=== PATIENT | female | born 1955 | race American Indian/Alaskan Native ===

== ENCOUNTER 2018-07-06 05:57 | Inpatient (IN) | payer BC ==
--- NOTE | 2018-07-06 06:52 | CP.PCM.HP ---
History of Present Illness - History of Present Illness History of Present Illness: PMD: Zoe Odom Orhtopedist: Fr Reina Chief Complaint: Right hip pain The patient was seen and examined in the [facility] HPI; the hx is obtained from the patient and after review of the medical records. This is a 62 years old female with hx of Breast Ca dx 2018 and HTN. She has been suffering with progressively worsening painful Osteoarthritis of the right hip for years. This is not responding to conservative management of exercise and analgesics.At present she has to use a Cane to ambulate and has difficulty to climb stairs because ot the right hip pain. She has decided to have surgical management to the right hip. She complains of mild pain to the right breast and upper right arm s/p right breast lumpectomy and right axillae lymph node resection in 2018. PMH: Right breast Ca 2018; HTN; Right hip arthritis PSH: Right breast lumpectomy 2018; Tubal ligation 30 years ago SH: Never smoked; Alcohol socially; No illegal drug use; Retired FH: State: No known family hx Allergies: NKDA Latex Medication: Reviewed Present on Admission - Present on Admission Any Indicators Present on Admission: No History of DVT/PE: No History of Uncontrolled Diabetes: No Urinary Catheter: No Decubitus Ulcer Present: No Review of Systems - Constitutional Constitutional: absent: Anorexia, Chills, Fatigue, Fever, Headache - EENT Eyes: absent: Blurred Vision, Change in Vision, Diplopia, Requires Corrective Lenses Ears: absent: Decreased Hearing, Ear Discharge, Tinnitus Nose/Mouth/Throat: absent: Epistaxis, Nasal Congestion, Nasal Discharge, Sinus Pain, Sinus Pressure - Cardiovascular Cardiovascular: absent: Chest Pain, Dyspnea, Edema - Respiratory Respiratory: absent: Cough, Dyspnea, Wheezing, Stridor - Gastrointestinal Gastrointestinal: absent: Abdominal Pain, Constipation, Diarrhea, Nausea, Vomiting - Genitourinary Genitourinary: absent: Dysuria, Flank Pain, Hematuria, Urinary Frequency - Musculoskeletal Musculoskeletal: Arthralgias - Integumentary Integumentary: absent: Skin Ulcer, Sores, Striae, Swelling - Neurological Neurological: absent: Confusion, Dizziness, Focal Weakness - Psychiatric Psychiatric: absent: Anxiety, Depression, Panic Attacks - Endocrine Endocrine: absent: Palpitations, Polydipsia, Polyphagia, Polyuria - Hematologic/Lymphatic Hematologic: absent: Easy Bleeding, Easy Bruising Past Patient History - Past Medical History & Family History Past Medical History?: Yes - Past Social History Smoking Status: Former Smoker Chewing Tobacco Use: No Cigar Use: No Alcohol: Social - CARDIAC Hx Cardiac Disorders: Yes Hx Hypertension: Yes - PULMONARY Hx Respiratory Disorders: No - NEUROLOGICAL Hx Neurological Disorder: No - HEENT Hx HEENT Problems: No - RENAL Hx Chronic Kidney Disease: No - ENDOCRINE/METABOLIC Hx Endocrine Disorders: No - HEMATOLOGICAL/ONCOLOGICAL Hx Blood Disorders: Yes Hx Anemia: No Hx Blood Transfusions: No Hx Cancer: Yes (RIGHT BREAST CA-RADIATION X3 WEEKS-2018) - INTEGUMENTARY Hx Dermatological Problems: No - MUSCULOSKELETAL/RHEUMATOLOGICAL Hx Musculoskeletal Disorders: Yes Hx Arthritis: Yes (HIP) Hx Falls: No - GASTROINTESTINAL Hx Gastrointestinal Disorders: No - GENITOURINARY/GYNECOLOGICAL Hx Genitourinary Disorders: No - PSYCHIATRIC Hx Emotional Abuse: No Hx Physical Abuse: No - SURGICAL HISTORY Hx Surgeries: Yes Other/Comment: RIGHT BREAST LUMPECTOMY-2018;COLONOSCOPY;ENDOSCOPY;D&C;TUBALIGATION-30 YEARS AGO - ANESTHESIA Hx Anesthesia: Yes Hx Anesthesia Reactions: No Hx Malignant Hyperthermia: No Has any member of the family had a problem w/ anesthesia?: No Meds Allergies/Adverse Reactions: Allergies Allergy/AdvReac Type Severity Reaction Status Date / Time latex Allergy SWELLING Verified 07/06/18 06:30 Physical Exam - Head Exam Head Exam: ATRAUMATIC, NORMAL INSPECTION, NORMOCEPHALIC - Eye Exam Eye Exam: EOMI, Normal appearance Pupil Exam: NORMAL ACCOMODATION, PERRL - ENT Exam ENT Exam: Mucous Membranes Moist, Normal Exam, Normal External Ear Exam - Neck Exam Neck exam: Positive for: Full Rom, Normal Inspection. Negative for: Lymphadenopathy, Tenderness - Respiratory Exam Respiratory Exam: Clear to Auscultation Bilateral. absent: Rales, Rhonchi, Wheezes, Stridor - Cardiovascular Exam Cardiovascular Exam: REGULAR RHYTHM, RRR, +S1, +S2. absent: Gallop, JVD - GI/Abdominal Exam GI & Abdominal Exam: Normal Bowel Sounds, Soft. absent: Organomegaly, Tenderness - Rectal Exam Rectal Exam: Deferred - Extremities Exam Extremities exam: Positive for: normal inspection. Negative for: pedal edema Additional comments: Pain to the right hip on ambulation - Back Exam Back exam: NORMAL INSPECTION. absent: CVA tenderness (L), CVA tenderness (R) - Neurological Exam Neurological exam: Alert, CN II-XII Intact, Oriented x3, Reflexes Normal - Psychiatric Exam Psychiatric exam: Normal Affect, Normal Mood - Skin Skin Exam: Dry, Intact, Normal Color, Warm Assessment & Plan - Assessment and Plan (Free Text) Plan: 62 years old female with hx of Breast Ca dx 2018 and HTN. She has been suffering with progressively worsening painful Osteoarthritis of the right hip for years. She has failed conservative management and has decided to have surgical management to the right hip. #. Osteoarthritis of the right hip - Consult Orthopedic, Dr Reina - Orthopedic management - Pain management - OT/PT #. HTN - Norvasc 10mg daily #. Hx of Breast Ca - Followed by OP Oncology #. DVT Prophylaxis with SCD Anticoagulant on Post OP day #1 #. Code Status: Full This patient was cleared for surgery by Dr Hardik Gonzalez. After review of the laboratory, radiological and medical records, this patient has mild to moderate cardiac risk for Surgery. I agreee with the clearance of this patient for surgery under general anaesthesia. Obinna Spain MD - Date & Time Date: 07/06/18 Time: 06:51
--- NOTE | 2018-07-06 07:22 | CP.PCM.CON ---
History of Present Illness - History of Present Illness History of Present Illness: Orthopedic consult: Dr. Reina Patient is a 62 y/o female who presents for elective R NELLY. The patient has had chronic hip pain for many years that has progressively worsened over the past few months. The pain has hindered her usual activities such as walking and stair-climbing. She currently walks with a cane and climbs 5 steps to get into her home where shelives alone. She has tried and failed conservative means with oral medications and PT. She denies any radiation of pain/numbness/tingling to RLE. She denies any CP/SOB/N/V/D/fever/dysuria/melena. She denies any cardiac/thromboembolic events in the past. PMH: HTN PSH: tubal ligation, R breast lumpectomy meds: as per med rec allergy: latex SH: former smoker (quit 2005), drinks wine occasionally, denies drug use Review of Systems - Review of Systems All systems: reviewed and no additional remarkable complaints except Review of Systems: as per HPI Past Patient History - Past Medical History & Family History Past Medical History?: Yes Past Family History: Reviewed and not pertinent - Past Social History Smoking Status: Former Smoker - CARDIAC Hx Cardiac Disorders: Yes Hx Hypertension: Yes - PULMONARY Hx Respiratory Disorders: No - NEUROLOGICAL Hx Neurological Disorder: No - HEENT Hx HEENT Problems: No - RENAL Hx Chronic Kidney Disease: No - ENDOCRINE/METABOLIC Hx Endocrine Disorders: No - HEMATOLOGICAL/ONCOLOGICAL Hx Blood Disorders: Yes Hx Anemia: No Hx Blood Transfusions: No Hx Cancer: Yes (RIGHT BREAST CA-RADIATION X3 WEEKS-2018) - INTEGUMENTARY Hx Dermatological Problems: No - MUSCULOSKELETAL/RHEUMATOLOGICAL Hx Musculoskeletal Disorders: Yes Hx Arthritis: Yes (HIP) Hx Falls: No - GASTROINTESTINAL Hx Gastrointestinal Disorders: No - GENITOURINARY/GYNECOLOGICAL Hx Genitourinary Disorders: No - PSYCHIATRIC Hx Emotional Abuse: No Hx Physical Abuse: No - SURGICAL HISTORY Hx Surgeries: Yes Other/Comment: RIGHT BREAST LUMPECTOMY-2018;COLONOSCOPY;ENDOSCOPY;D&C;TUBALIGATION-30 YEARS AGO - ANESTHESIA Hx Anesthesia: Yes Hx Anesthesia Reactions: No Hx Malignant Hyperthermia: No Has any member of the family had a problem w/ anesthesia?: No Meds Allergies/Adverse Reactions: Allergies Allergy/AdvReac Type Severity Reaction Status Date / Time latex Allergy SWELLING Verified 03/11/19 06:30 Physical Exam - Constitutional Appears: Well, No Acute Distress - Head Exam Head Exam: ATRAUMATIC, NORMOCEPHALIC - Eye Exam Eye Exam: EOMI, Normal appearance - ENT Exam ENT Exam: Mucous Membranes Moist - Respiratory Exam Respiratory Exam: NORMAL BREATHING PATTERN - Extremities Exam Additional comments: RLE: lateral hip and groin tenderness no lesions/masses/erythema sensation intact SP/DP/TN motor intact EHL/FHL/TA/G pedal pulses intact calves soft NT b/l - Neurological Exam Neurological exam: Alert, Oriented x3 - Psychiatric Exam Psychiatric exam: Normal Affect, Normal Mood - Skin Skin Exam: Normal Color, Warm Results - Vital Signs Recent Vital Signs: Last Vital Signs Temp 97.7 F 07/06/18 06:55 Pulse 83 07/06/18 06:55 Resp 20 07/06/18 06:55 BP 133/80 07/06/18 06:55 Pulse Ox 94 L 07/06/18 06:55 - Impressions Impression: R hip xrays from outside facility show R hip osteoarthritis Assessment & Plan (1) Osteoarthritis of right hip Assessment and Plan: -OR today for R hip NELLY -Risks/benefits/alternatives d/w patient who expresses understanding and agrees to proceed with above procedure -NPO -Medical clearance in chart -above d/w Dr. Reina in agreement Status: Acute - Date & Time Date: 07/06/18 Time: 07:15
[2018-07-06] MEDS ORDERED: Tranexamic Acid 1,000 MG in Sodium Chloride 0.9% 100 ML IVPB SCH (07:24)
[2018-07-06] MEDS ORDERED: EPINEPHrine 1 mg/ml (1:1000) Inj ONE (07:42)
[2018-07-06] MEDS ORDERED: Absorbable Gelatin Sponge Size 12-7 ONE (07:42)
[2018-07-06] MEDS ORDERED: Thrombin Topical 5,000 Int Units Spray Kit ONE (07:43)
[2018-07-06] MEDS ORDERED: Bacitracin Ointment 30 GM TUBE ONE (07:43)
[2018-07-06] MEDS ORDERED: Lactated Ringer's 1,000 ML IV ONE ×3 (07:45→12:28)
[2018-07-06 07:49] LABS: SQUAMOUS EPITHIAL 1 /hpf (0-5); URINE BILIRUBIN NEGATIVE (NEGATIVE); URINE BLOOD NEGATIVE (NEGATIVE); URINE CALCIUM OXALATE CRYSTALS MOD /hpf (<OCC); URINE CLARITY CLOUDY (Clear); URINE COLOR YELLOW (YELLOW); URINE GLUCOSE (UA) NEG (NEGATIVE); URINE LEUKOCYTE ESTERASE NEG Leu/uL (Negative); URINE PROTEIN NEGATIVE (NEGATIVE); URINE UROBILINOGEN 0.2-1.0 mg/dL (0.2-1.0)
[2018-07-06] MEDS ORDERED: Succinylcholine 200 mg/10 ml Inj IV ONE (08:07)
[2018-07-06] MEDS ORDERED: Propofol 10 mg/ml Inj (20 ML) ONE ×2 (08:07→10:19)
[2018-07-06] MEDS ORDERED: Midazolam 2 MG/2 ML VIAL ONE (08:07)
[2018-07-06] MEDS ORDERED: Morphine 1 mg/ml preservative-free Inj(Duramorph) ONE (08:09)
[2018-07-06] MEDS ORDERED: Lidocaine 1% 5ml Abboject ONE (08:25)
[2018-07-06] MEDS ORDERED: Rocuronium 10 mg/ml (5 ml) ONE ×3 (08:34→10:23)
[2018-07-06] MEDS ORDERED: Phenylephrine 10 mg/ml Inj ONE (08:42)
[2018-07-06] MEDS ORDERED: EPINEPHrine 1 mg/ml (1:1000) Inj IV ONE (09:10)
[2018-07-06] MEDS ORDERED: Neostigmine 1:1000 (1 mg/ml) Inj ONE (12:03)
[2018-07-06] MEDS ORDERED: Oxycodone/Acetaminophen 5/325 mg Tab PO PRN (12:22)
--- NOTE | 2018-07-06 12:33 | PCM.SURG1 ---
Surgeon's Initial Post Op Note - Surgeon's Notes Surgeon: Latosha Straightening Press Operator: REGINA Rouse Type of Anesthesia: General Endo Anesthesia Administered By: DR Gallo Pre-Operative Diagnosis: Primary hypertrophic O/A R hip Operative Findings: primary O/A R hip. synovitis R hip joint. femoral neck osteotomy. capsu;ar contracture/iliopsoas tendon contracture Post-Operative Diagnosis: as above Operation Performed: R THR. femoral neck osteotomy. arthrotomy /synovectomy. rlease iliopsoas tendon. autograft bone graft Specimen/Specimens Removed: cartilage synovium bone Estimated Blood Loss: EBL {In ML}: 250 Blood Products Given: N/A Drains Used: No Drains Post-Op Condition: Fair Date of Surgery/Procedure: 07/06/18 Time of Surgery/Procedure: 09:30 (timem inroom 8:05/anaesthesia indcution time 8:05)
[2018-07-06] MEDS ORDERED: HYDROmorphone 0.5 mg/0.5 ml ISec IVP PRN (12:44)
--- NOTE | 2018-07-06 15:48 | RAD ---
PROCEDURE: Right Hip Radiographs. HISTORY: s/p R NELLY COMPARISON: None. FINDINGS: BONES: Satisfactory position alignment of components right NELLY is visualized. JOINTS: Normal. SOFT TISSUES: Expected findings in the soft tissues include air interposed between the skin and the prosthesis. OTHER FINDINGS: None. IMPRESSION: Satisfactory postoperative status.
--- NOTE | 2018-07-06 16:05 | RAD ---
Date of service: 07/06/2018 PROCEDURE: Fluoroscopy up to 1 hr. HISTORY: RIGHT HIP COMPARISON: None TECHNIQUE: Standard protocol for this study/examination. FINDINGS: Total fluoroscopic time (continuous mode) utilized during the procedure 22.7 seconds. Total exam DLP: 4.20 (mGy). IMPRESSION: Less than 1 hr fluoroscopic assistance provided during performance of the procedure.
[2018-07-06] MEDS: Lactated Ringer's 1,000 ML IV SCH ×3 (16:25→22:45)
[2018-07-06] MEDS: ceFAZolin 2 GM in Sodium Chloride 0.9% 100 ML IVPB SCH (17:22)
--- NOTE | 2018-07-06 17:26 | CARD ---
APPROVED REPORT Date of service: 07/06/2018 EKG Measurement Heart [id number] <Conclusion> Normal sinus rhythm Minimal voltage criteria for LVH, may be normal variant Borderline ECG
[2018-07-06] MEDS: Docusate-Senna 50 mg-8.6 mg Tab PO SCH (22:16)
[2018-07-06] MEDS: Oxycodone/Acetaminophen 5/325 mg Tab PO PRN (23:48)
[2018-07-07] MEDS: ceFAZolin 2 GM in Sodium Chloride 0.9% 100 ML IVPB SCH ×3 (00:54→17:59)
[2018-07-07 06:32] VITALS: BMI 37.3
[2018-07-07 06:37] LABS: HEMOGLOBIN 10.2 g/dL (12.0-16.0); MEAN CELL VOLUME 88.9 fl (81.0-99.0); MEAN CORPUSCULAR HEMOGLOBIN 29.5 pg (27.0-31.0); MEAN CORPUSCULAR HGB CONC 33.2 g/dL (33.0-37.0); RBC 3.47 Mil/uL (3.80-5.20); WHITE BLOOD COUNT 8.7 K/uL (4.8-10.8)
[2018-07-07] MEDS: Morphine 4 MG/ML VIAL IVP PRN ×3 (06:41→20:09)
[2018-07-07 06:56] LABS: BLOOD UREA NITROGEN 19 mg/dl (7-17); CALCIUM 8.3 mg/dL (8.4-10.2); GFR NON-AFRICAN AMERICAN 50
[2018-07-07] MEDS: Lactated Ringer's 1,000 ML IV SCH ×5 (08:42→21:13)
--- NOTE | 2018-07-07 10:42 | CP.PCM.PN ---
<Shae GarciaKrystyna - Last Filed: 07/07/18 10:56> Subjective - Date & Time of Evaluation Date of Evaluation: 07/07/18 Time of Evaluation: 08:45 - Subjective Subjective: Patient seen and examined this morning, in NAD, lying comfortable in bed. Patient c/o mild pain to the surgical site. Patient denies itching today, rash, SOB, chest pain, abdominal pain, dysuria, N/V or other acute medical complaint at this time. Patient was straight cath overnight x1 due to urinary retention, has not voided yet after straight cath. Patient is waiting for PT to get OOB. Objective - Vital Signs/Intake and Output Vital Signs (last 24 hours): Temp Pulse Resp BP Pulse Ox 100.1 F H 101 H 20 101/60 96 07/07/18 08:31 07/07/18 08:31 07/07/18 08:31 07/07/18 08:31 07/07/18 08:31 Intake and Output: 07/07/18 07/07/18 06:59 18:59 Output Total 700 Balance -700 - Medications Medications: Current Medications Acetaminophen (Tylenol 325mg Tab) 650 mg PO Q4 PRN PRN Reason: Fever 101 degrees fahrenheit Enoxaparin Sodium (Lovenox) 40 mg SC DAILY [facility]; Protocol Ferrous Sulfate (Feosol) 325 mg PO BID [facility] Last Admin: 07/07/18 08:39 Dose: 325 mg Folic Acid (Folic Acid) 1 mg PO DAILY [facility] Last Admin: 07/07/18 08:39 Dose: 1 mg Cefazolin Sodium 2 gm/ Sodium (Chloride) 100 mls @ 100 mls/hr IVPB Q8 [facility]; Protocol Stop: 07/07/18 17:59 Last Admin: 07/07/18 08:42 Dose: 100 mls/hr Lactated Ringer's (Lactated Ringer's) 1,000 mls @ 100 mls/hr IV .Q10H [facility] Last Admin: 07/07/18 08:42 Dose: Not Given Lactated Ringer's (Lactated Ringer's) 1,000 mls @ 100 mls/hr IV .Q10H [facility] Last Admin: 07/06/18 22:45 Dose: Not Given Morphine Sulfate (Morphine) 2 mg IVP Q4 PRN PRN Reason: Pain, severe (8-10) Last Admin: 07/07/18 06:41 Dose: 2 mg Ondansetron HCl (Zofran Inj) 4 mg IVP ONCE PRN PRN Reason: Nausea/Vomiting Oxycodone/Acetaminophen (Percocet 5/325 Mg Tab) 2 tab PO Q4 PRN PRN Reason: Pain, moderate (4-7) Stop: 07/09/18 12:23 Last Admin: 07/06/18 23:48 Dose: 2 tab Oxycodone/Acetaminophen (Percocet 5/325 Mg Tab) 1 tab PO Q4 PRN PRN Reason: Pain, Mild (1-3) Stop: 07/09/18 12:23 Senna/Docusate Sodium (Senokot S 50 Mg-8.6 Mg) 2 tab PO HS [facility] Last Admin: 07/06/18 22:16 Dose: Not Given - Labs Labs: 07/07/18 05:25 07/07/18 05:25 - Constitutional Appears: No Acute Distress - Head Exam Head Exam: ATRAUMATIC, NORMOCEPHALIC - Eye Exam Eye Exam: EOMI - ENT Exam ENT Exam: Mucous Membranes Moist - Respiratory Exam Respiratory Exam: Clear to Ausculation Bilateral - Cardiovascular Exam Cardiovascular Exam: REGULAR RHYTHM, +S1, +S2 - GI/Abdominal Exam GI & Abdominal Exam: Soft - Extremities Exam Extremities Exam: absent: Calf Tenderness Additional comments: Right hip dressing noted in place with Ice pack in the site, dressing clean and intact. Good sensation of b/l LE, capillary refill normal - Neurological Exam Neurological Exam: Alert, Awake - Psychiatric Exam Psychiatric exam: Normal Affect - Skin Skin Exam: Normal Color, Warm Assessment and Plan - Assessment and Plan (Free Text) Assessment: 62 Y/O female with PMH of Breast Ca diagnosed in 2018 and HTN. She has been suffering with progressively worsening painful Osteoarthritis of the right hip for several years. Patient has failed conservative management for Right hip OA and decided to have surgical management to the right hip. Patient today is s/p Right NELLY done on 07/06/18. Plan: #. Osteoarthritis of the right hip -S/p Right NELLY post op day 1 - Orthopedic, Dr Reina - Orthopedic management - Pain management, as per ortho - OT/PT #. HTN - Norvasc 10mg daily #. Hx of Breast Ca - Followed by OP Oncology #. DVT Prophylaxis with SCD Lovenox 40 SC QD #. Code Status: Full <Joseline Cleveland - Last Filed: 07/07/18 16:22> Objective - Vital Signs/Intake and Output Vital Signs (last 24 hours): Temp Pulse Resp BP Pulse Ox 98.8 F 100 H 18 115/80 91 L 07/07/18 15:50 07/07/18 15:50 07/07/18 15:50 07/07/18 15:50 07/07/18 15:50 Intake and Output: 07/07/18 07/07/18 06:59 18:59 Output Total 700 Balance -700 - Medications Medications: Current Medications Acetaminophen (Tylenol 325mg Tab) 650 mg PO Q4 PRN PRN Reason: Fever 101 degrees fahrenheit Enoxaparin Sodium (Lovenox) 40 mg SC DAILY [facility]; Protocol Last Admin: 07/07/18 12:23 Dose: 40 mg Ferrous Sulfate (Feosol) 325 mg PO BID [facility] Last Admin: 07/07/18 08:39 Dose: 325 mg Folic Acid (Folic Acid) 1 mg PO DAILY [facility] Last Admin: 07/07/18 08:39 Dose: 1 mg Cefazolin Sodium 2 gm/ Sodium (Chloride) 100 mls @ 100 mls/hr IVPB Q8 [facility]; Protocol Stop: 07/07/18 17:59 Last Admin: 07/07/18 08:42 Dose: 100 mls/hr Lactated Ringer's (Lactated Ringer's) 1,000 mls @ 100 mls/hr IV .Q10H [facility] Last Admin: 07/07/18 08:42 Dose: Not Given Lactated Ringer's (Lactated Ringer's) 1,000 mls @ 100 mls/hr IV .Q10H [facility] Last Admin: 07/07/18 12:08 Dose: Not Given Morphine Sulfate (Morphine) 2 mg IVP Q4 PRN PRN Reason: Pain, severe (8-10) Last Admin: 07/07/18 11:22 Dose: 2 mg Ondansetron HCl (Zofran Inj) 4 mg IVP ONCE PRN PRN Reason: Nausea/Vomiting Oxycodone/Acetaminophen (Percocet 5/325 Mg Tab) 2 tab PO Q4 PRN PRN Reason: Pain, moderate (4-7) Stop: 07/09/18 12:23 Last Admin: 07/06/18 23:48 Dose: 2 tab Oxycodone/Acetaminophen (Percocet 5/325 Mg Tab) 1 tab PO Q4 PRN PRN Reason: Pain, Mild (1-3) Stop: 07/09/18 12:23 Senna/Docusate Sodium (Senokot S 50 Mg-8.6 Mg) 2 tab PO HS [facility] Last Admin: 07/06/18 22:16 Dose: Not Given - Labs Labs: 07/07/18 05:25 07/07/18 05:25 Attending/Attestation - Attestation I have personally seen and examined this patient.: Yes I have fully participated in the care of the patient.: Yes I have reviewed all pertinent clinical information, including history, physical exam and plan: Yes Notes (Text): Right Hip Primary OA s/p THR - Physical therapy - Pain mgt -DVT proph- Lovenox HTN - hold off on BP med as BP low normal
--- NOTE | 2018-07-07 11:04 | CP.PCM.CON ---
History of Present Illness - History of Present Illness History of Present Illness: THE PATIENT IS A 62 YEAR OLD FEMALE WHO UNDERWENT A RIGHT THR YESTERDAY FOR SEVERE OA NOT IMPROVED BY CONSERVATIVE TREATMENT. SHE ALSO HAS A HISTORY OF HYPERTENSION. I HAVE BEEN ASKED TO FOLLOW HER BY DR BYNUM. SHE DENIES ANY OTHER MAJOR MEDICAL PROBLEMS AND DENIES ANY HISTORY OF CAD OR CHEST PAIN IN THE PAST. SHE IS NOW RESTING COMFORTABLY WITHOUT ANY CHEST PAIN OR SOB. Past Patient History - Past Medical History & Family History Past Medical History?: Yes Past Family History: Reviewed and not pertinent - Past Social History Smoking Status: Former Smoker - CARDIAC Hx Cardiac Disorders: Yes Hx Hypertension: Yes - PULMONARY Hx Respiratory Disorders: No - NEUROLOGICAL Hx Neurological Disorder: No - HEENT Hx HEENT Problems: No - RENAL Hx Chronic Kidney Disease: No - ENDOCRINE/METABOLIC Hx Endocrine Disorders: No - HEMATOLOGICAL/ONCOLOGICAL Hx Blood Disorders: Yes Hx Anemia: No Hx Blood Transfusions: No Hx Cancer: Yes (RIGHT BREAST CA-RADIATION X3 WEEKS-2018) - INTEGUMENTARY Hx Dermatological Problems: No - MUSCULOSKELETAL/RHEUMATOLOGICAL Hx Musculoskeletal Disorders: Yes Hx Arthritis: Yes (HIP) Hx Falls: No - GASTROINTESTINAL Hx Gastrointestinal Disorders: No - GENITOURINARY/GYNECOLOGICAL Hx Genitourinary Disorders: No - PSYCHIATRIC Hx Emotional Abuse: No Hx Physical Abuse: No - SURGICAL HISTORY Hx Surgeries: Yes Other/Comment: RIGHT BREAST LUMPECTOMY-2018;COLONOSCOPY;ENDO SCOPY;D&C;TUBALIGATION-30 YEARS AGO - ANESTHESIA Hx Anesthesia: Yes Hx Anesthesia Reactions: No Hx Malignant Hyperthermia: No Has any member of the family had a problem w/ anesthesia?: No Meds Allergies/Adverse Reactions: Allergies Allergy/AdvReac Type Severity Reaction Status Date / Time latex Allergy SWELLING Verified 07/06/18 06:30 - Medications Medications: Current Medications Acetaminophen (Tylenol 325mg Tab) 650 mg PO Q4 PRN PRN Reason: Fever 101 degrees fahrenheit Enoxaparin Sodium (Lovenox) 40 mg SC DAILY [facility]; Protocol Ferrous Sulfate (Feosol) 325 mg PO BID [facility] Last Admin: 07/07/18 08:39 Dose: 325 mg Folic Acid (Folic Acid) 1 mg PO DAILY [facility] Last Admin: 07/07/18 08:39 Dose: 1 mg Cefazolin Sodium 2 gm/ Sodium (Chloride) 100 mls @ 100 mls/hr IVPB Q8 [facility]; Protocol Stop: 07/07/18 17:59 Last Admin: 07/07/18 08:42 Dose: 100 mls/hr Lactated Ringer's (Lactated Ringer's) 1,000 mls @ 100 mls/hr IV .Q10H [facility] Last Admin: 07/07/18 08:42 Dose: Not Given Lactated Ringer's (Lactated Ringer's) 1,000 mls @ 100 mls/hr IV .Q10H [facility] Last Admin: 07/06/18 22:45 Dose: Not Given Morphine Sulfate (Morphine) 2 mg IVP Q4 PRN PRN Reason: Pain, severe (8-10) Last Admin: 07/07/18 06:41 Dose: 2 mg Ondansetron HCl (Zofran Inj) 4 mg IVP ONCE PRN PRN Reason: Nausea/Vomiting Oxycodone/Acetaminophen (Percocet 5/325 Mg Tab) 2 tab PO Q4 PRN PRN Reason: Pain, moderate (4-7) Stop: 07/09/18 12:23 Last Admin: 07/06/18 23:48 Dose: 2 tab Oxycodone/Acetaminophen (Percocet 5/325 Mg Tab) 1 tab PO Q4 PRN PRN Reason: Pain, Mild (1-3) Stop: 07/09/18 12:23 Senna/Docusate Sodium (Senokot S 50 Mg-8.6 Mg) 2 tab PO [facility] Last Admin: 07/06/18 22:16 Dose: Not Given Physical Exam - Respiratory Exam Respiratory Exam: Clear to Auscultation Bilateral - Cardiovascular Exam Cardiovascular Exam: REGULAR RHYTHM, +S1, +S2 - Extremities Exam Additional comments: NO SIGNIFICANT LE EDEMA - Additional Findings Additional findings: PAT DOCUMENTS REVIEWED H/H 02/24 AND K+ 3.9 TODAY Results - Vital Signs Recent Vital Signs: Last Vital Signs Temp 100.1 F H 07/07/18 08:31 Pulse 101 H 07/07/18 08:31 Resp 20 07/07/18 08:31 BP 101/60 07/07/18 08:31 Pulse Ox 96 07/07/18 08:31 - Labs Result Diagrams: 07/07/18 05:25 07/07/18 05:25 Labs: Laboratory Results - last 24 hr 07/07/18 07/07/18 05:25 05:25 WBC 8.7 RBC 3.47 L Hgb 10.2 L Hct 30.8 L MCV 88.9 MCH 29.5 MCHC 33.2 RDW 15.0 H Plt Count 174 Sodium 135 Potassium 3.9 Chloride 104 Carbon Dioxide 24 Anion Gap 11 BUN 19 H Creatinine 1.1 Est GFR ( Amer) > 60 Est GFR (Non-Af Amer) 50 Random Glucose 104 Calcium 8.3 L Assessment & Plan - Assessment and Plan (Free Text) Assessment: S/P RIGHT THR YESTERDAY-STABLE HYPERTENSION Plan: CONTINUE LOVENOX AND PAIN MEDICINES AMLODIPINE WAS NOT RESTARTED YET HER BP IS STILL LOW NORMAL
--- NOTE | 2018-07-07 11:05 | OP ---
PROCEDURE DATE: 07/06/2018 PREOPERATIVE DIAGNOSIS: Severe primary hypertrophic osteoarthritis of the right hip. POSTOPERATIVE DIAGNOSIS: Severe primary hypertrophic osteoarthritis of the right hip. OPERATIVE FINDINGS: 1. Primary osteoarthritis of right hip. 2. Severe synovitis of the right hip joint. 3. Capsular contracture of the hip. 4. Iliopsoas tendon contracture. POSTOPERATIVE DIAGNOSES: 1. Primary osteoarthritis of the right hip. 2. Synovitis of the right hip joint. 3. Capsular contracture. 4. Iliopsoas tendon contracture. OPERATIONS PERFORMED: 1. Right total hip replacement arthroplasty, anterior approach. 2. Femoral neck osteotomy (deserves a separate procedure code because the amount of preoperative planning and intraoperative planning to achieve leg-length inequality; the patient presented with preoperative leg-length inequality). 3. Arthrotomy, synovectomy. 4. Release of iliopsoas tendon. 5. Autograft bone graft to both the femur and the acetabulum. CAMPGROUND CARETAKER: DAWIT Chiu, certified registered nursing membership assistant. SECOND NEEDLE LEADER: Troy Houston. Both assistants were necessary to the completion of the operative goal. SPECIMENS REMOVED: Cartilage, synovium, bone. BLOOD LOSS: 250 mL. BLOOD PRODUCTS: No blood products given. DRAINS: No drains. POSTOPERATIVE CONDITION: Stable. TIME OF PROCEDURE: Incision time 09:30, time in the room 08:05. OPERATIVE INDICATION: Juan Francisco Valdes is a 62-year-old woman who presents with severe right hip pain and restricted range of motion over the last several years. The patient is a referral from . The patient presents failing conservative management consisting of activity modification, weight loss, and therapy. Unfortunately, the weight loss was minimal. Pros, cons, risks, and benefits of surgical approach to the hip, specifically anterior approach to total hip replacement was discussed. The possibility of mechanical failure, infection, thromboembolic disease, recurrent dislocation, secondary or tertiary surgery was discussed. The possibility of limb length inequality is discussed. The patient understands the discomfort and wished the surgery to be accomplished. She is conversant with the differences between the anterior and posterior approach to hip replacement arthroplasty. OPERATIVE PROCEDURE: After having obtained informed consent in the above fashion; after having identified side, site, and procedure, and critical pause/time-out; after the satisfactory induction of the anesthetic; the patient identified as Juan Francisco Valdes, was placed in the supine position in the AMIS traction positioner. The right lower extremity was prepped and draped in the usual fashion for extremity surgery. Under the surgeon's direction, the fluoroscope was positioned. Video images were generated. Therapeutic decisions were made therefrom. Great care was taken, and all bony prominences were well padded. The patient's panniculus, which is generous, is carefully reflected out of the way to identify and protect the operative field. After sterilely prepping and draping, an incision was described three fingerbreadths posterior to the ASIS and one fingerbreadth distal. The incision was carried 5 inches in extent, superficial to the tensor fascia femoris muscle. The skin incision was carried down through the skin and subcutaneous tissue. The fascia, superficial to this tensor fascia femoris, was identified. The tensor fascia femoris muscle was taken down from the investing fascia. The retractor was placed deep, and the posterior aspect of the rectus femoris was identified. The anterior branch of the lateral femoral circumflex vessels was controlled with suture ligature. Hemostasis was controlled with the Aquamantys as well. The Medacta retractor was placed horizontally at this deep plane revealing the fascia, superficial to the hip joint. Taking great care with a cell by cell dissection of that fascial layer, again the anterior branch of the lateral femoral circumflex and the deep lateral femoral circumflex vessel was identified. Again, the vessel was controlled with Aquamantys. A capsulotomy was accomplished extending from the acetabular rim medially. Internal rotation of the traction was accomplished to define the medial aspect of the neck. The capsule was brought laterally and tagged with Vicryl suture. This having been accomplished again under the surgeon's direction, the fluoroscope had been positioned. A great deal of time had been accomplished planning femoral neck osteotomy. It was measured from the lesser trochanter. Femoral neck osteotomy was accomplished. Two turns of traction were offered. External rotation now at this point was offered, and the corkscrew was placed in the femoral neck and the femoral neck head was removed from the hip joint. Thorough synovectomy was accomplished after arthrotomy of the hip joint was accomplished. Retractors were placed. The labrum was excised. Arthrotomy and synovectomy was accomplished. Arthrotomy debridement of the labrum was accomplished. The patient was found to have a pubofemoral capsular contracture as well as contracture of the iliopsoas tendon. This having been accomplished, sequential reaming was carried out. The head measurement was accomplished, and reaming was carried out to approximately 52 mm to 54 mm. Reaming having been accomplished, it approximately 45 degrees of abduction and 20 degrees of anteversion. This having been accomplished, reamings were denuded of articular cartilage for bone grafting. At this point in time, the trial having been accomplished, the verification of position was offered on image intensification found to be acceptable. The Medacta cup was impacted again at approximately 45 degrees of abduction and 15-20 degrees of anteversion. Impaction having been completed after bone grafting to the acetabulum had been accomplished after acceptable reaming. This having been accomplished, attention was turned to the femur. External rotation began. The pubofemoral ligament was carefully released with electrocautery. Hemostasis was controlled with the Aquamantys. Iliopsoas tendon was identified and partially released as well. Completion of external rotation of the femur was accomplished to approximately 150 degrees, 135, 150 degrees; and extension of the hip was accomplished. The medial retractor was placed. The posterior retractor was placed, and the cut femoral neck was delivered into the wound. The bridge of bone between the neck of the trochanter removed with the box chisel. The canal was found using the bur and the rasp, found to be successful. Broaching was accomplished to a #3 femoral component. At this point in time, the standard head neck was applied. The hip was reduced and found to be stable in all planes. This having been accomplished, the trial broach was removed. Again, the wound was thoroughly irrigated, and the definitive #3 femoral stem was applied in probably neutral position to 1 degree of varus. The femoral stem was introduced. Standard neck at outer bearing was accomplished. The hip was reduced and found to be stable in all planes. Further autograft bone grafting was carried out to the proximal femur. Extensive irrigation was accomplished. Hemostasis was controlled with the Aquamantys. The wound was thoroughly irrigated again. Bone grafting was again accomplished to the femur. Closures in layers, O Quill for the fascia of the tensor fascia femoris, followed by 0 Vicryl, 2-0 Vicryl, pito for skin. A compression dressing was applied. Verification of position was offered on image intensification views before transfer to the stretcher, found to be acceptable. Postoperative x-rays showed acceptable position of the construct. Donell Reina MD
--- NOTE | 2018-07-07 12:16 | CP.PCM.PN ---
Subjective - Date & Time of Evaluation Date of Evaluation: 07/07/18 Time of Evaluation: 10:00 - Subjective Subjective: Patient seen and examined at bedside comfortable. Pain well controlled this AM. Tolerated PT well. No acute events overnight. No other complaints. Objective - Vital Signs/Intake and Output Vital Signs (last 24 hours): Temp Pulse Resp BP Pulse Ox 99.2 F 91 H 18 103/69 98 07/07/18 12:07 07/07/18 12:07 07/07/18 12:07 07/07/18 12:07 07/07/18 12:07 Intake and Output: 07/07/18 07/07/18 06:59 18:59 Output Total 700 Balance -700 - Medications Medications: Current Medications Acetaminophen (Tylenol 325mg Tab) 650 mg PO Q4 PRN PRN Reason: Fever 101 degrees fahrenheit Enoxaparin Sodium (Lovenox) 40 mg SC DAILY [facility]; Protocol Ferrous Sulfate (Feosol) 325 mg PO BID [facility] Last Admin: 07/07/18 08:39 Dose: 325 mg Folic Acid (Folic Acid) 1 mg PO DAILY [facility] Last Admin: 07/07/18 08:39 Dose: 1 mg Cefazolin Sodium 2 gm/ Sodium (Chloride) 100 mls @ 100 mls/hr IVPB Q8 [facility]; Protocol Stop: 07/07/18 17:59 Last Admin: 07/07/18 08:42 Dose: 100 mls/hr Lactated Ringer's (Lactated Ringer's) 1,000 mls @ 100 mls/hr IV .Q10H [facility] Last Admin: 07/07/18 08:42 Dose: Not Given Lactated Ringer's (Lactated Ringer's) 1,000 mls @ 100 mls/hr IV .Q10H [facility] Last Admin: 07/07/18 12:08 Dose: Not Given Morphine Sulfate (Morphine) 2 mg IVP Q4 PRN PRN Reason: Pain, severe (8-10) Last Admin: 07/07/18 11:22 Dose: 2 mg Ondansetron HCl (Zofran Inj) 4 mg IVP ONCE PRN PRN Reason: Nausea/Vomiting Oxycodone/Acetaminophen (Percocet 5/325 Mg Tab) 2 tab PO Q4 PRN PRN Reason: Pain, moderate (4-7) Stop: 07/09/18 12:23 Last Admin: 07/06/18 23:48 Dose: 2 tab Oxycodone/Acetaminophen (Percocet 5/325 Mg Tab) 1 tab PO Q4 PRN PRN Reason: Pain, Mild (1-3) Stop: 07/09/18 12:23 Senna/Docusate Sodium (Senokot S 50 Mg-8.6 Mg) 2 tab PO HS [facility] Last Admin: 07/06/18 22:16 Dose: Not Given - Labs Labs: 07/07/18 05:25 07/07/18 05:25 - Extremities Exam Additional comments: R hip: Dressings CDI sensation intact SP/DP/TN motor intact EHL/FHL/TA/G pedal pulses intact calves soft NT Assessment and Plan (1) Osteoarthritis of right hip Assessment & Plan: POD# 1 s/p R NELLY -PT/OT FWB -DVT ppx -orthopedically stable -d/c planning, to discharge tomorrow -above d/w Dr. Reina in agreement Status: Acute
[2018-07-07] MEDS: Enoxaparin 40 mg Syringe SC SCH (12:23)
[2018-07-07] MEDS: Docusate-Senna 50 mg-8.6 mg Tab PO SCH (22:29)
[2018-07-08] MEDS: Oxycodone/Acetaminophen 5/325 mg Tab PO PRN ×3 (00:26→13:58)
[2018-07-08] MEDS: Lactated Ringer's 1,000 ML IV SCH ×2 (04:30→04:45)
[2018-07-08 06:28] LABS: HEMOGLOBIN 9.7 g/dL (12.0-16.0); MEAN CELL VOLUME 89.2 fl (81.0-99.0); MEAN CORPUSCULAR HEMOGLOBIN 29.6 pg (27.0-31.0); MEAN CORPUSCULAR HGB CONC 33.2 g/dL (33.0-37.0); RBC 3.27 Mil/uL (3.80-5.20); RED CELL DISTRIBUTION WIDTH 14.8 % (11.5-14.5); WHITE BLOOD COUNT 11.4 K/uL (4.8-10.8)
[2018-07-08 06:38] LABS: BLOOD UREA NITROGEN 14 mg/dl (7-17); CALCIUM 8.6 mg/dL (8.4-10.2); GFR NON-AFRICAN AMERICAN > 60
[2018-07-08 09:31] VITALS: PULSE 100; RESP 20; TEMP 98.9
[2018-07-08] MEDS: Enoxaparin 40 mg Syringe SC SCH (09:41)
--- NOTE | 2018-07-08 09:50 | CP.PCM.DIS ---
<Shae LenakimberliKrystyna - Last Filed: 07/08/18 11:23> Provider - Provider Date of Admission: 07/06/18 12:22 Attending physician: John Scherer MD Consults: 07/06/18 06:52 Orthopedic Consult Routine Comment: Consulting Provider: Donell Reina III Consulting Physician: Donell Reina III Reason for Consult: Osteoarthritis Right hip 07/06/18 12:22 Case Management Referral Routine Comment: Physician Instructions: Reason For Exam: Reason for Referral: Discharge Planning 07/06/18 19:10 Cardiology Consult Routine Comment: Consulting Provider: Leandro Howell Consulting Physician: Leandro Howell Reason for Consult: postop cardiac mgmt Time Spent in preparation of Discharge (in minutes): 33 Diagnosis - Discharge Diagnosis (1) Osteoarthritis of right hip Status: Acute Hospital Course - Lab Results Lab Results: Most Recent Lab Values WBC 11.4 K/uL (4.8-10.8) H 07/08/18 05:59 RBC 3.27 Mil/uL (3.80-5.20) L 07/08/18 05:59 Hgb 9.7 g/dL (12.0-16.0) L 07/08/18 05:59 Hct 29.1 % (34.0-47.0) L 07/08/18 05:59 MCV 89.2 fl (81.0-99.0) 07/08/18 05:59 MCH 29.6 pg (27.0-31.0) 07/08/18 05:59 MCHC 33.2 g/dL (33.0-37.0) 07/08/18 05:59 RDW 14.8 % (11.5-14.5) H 07/08/18 05:59 Plt Count 151 K/uL (130-400) 07/08/18 05:59 Sodium 135 mmol/l (132-148) 07/08/18 05:59 Potassium 3.7 MMOL/L (3.6-5.0) 07/08/18 05:59 Chloride 104 mmol/L (98-107) 07/08/18 05:59 Carbon Dioxide 26 mmol/L (22-30) 07/08/18 05:59 Anion Gap 9 (10-20) L 07/08/18 05:59 BUN 14 mg/dl (7-17) 07/08/18 05:59 Creatinine 0.9 mg/dl (0.7-1.2) 07/08/18 05:59 Est GFR ( Amer) > 60 07/08/18 05:59 Est GFR (Non-Af Amer) > 60 07/08/18 05:59 Random Glucose 110 mg/dL (65-105) H 07/08/18 05:59 Calcium 8.6 mg/dL (8.4-10.2) 07/08/18 05:59 Urine Color Yellow (YELLOW) 07/06/18 07:08 Urine Clarity Cloudy (Clear) 07/06/18 07:08 Urine pH 5.0 (5.0-8.0) 07/06/18 07:08 Ur Specific [place] 1.020 (1.003-1.030) 07/06/18 07:08 Urine Protein Negative mg/dL (NEGATIVE) 07/06/18 07:08 Urine Glucose (UA) Neg mg/dL (NEGATIVE) 07/06/18 07:08 Urine Ketones Negative mg/dL (NEGATIVE) 07/06/18 07:08 Urine Blood Negative (NEGATIVE) 07/06/18 07:08 Urine Nitrate Negative (NEGATIVE) 07/06/18 07:08 Urine Bilirubin Negative (NEGATIVE) 07/06/18 07:08 Urine Urobilinogen 0.2-1.0 mg/dL (0.2-1.0) 07/06/18 07:08 Ur Leukocyte Esterase Neg Pratima/uL (Negative) 07/06/18 07:08 Urine RBC (Auto) 2 /hpf (0-3) 07/06/18 07:08 Urine Microscopic WBC 3 /hpf (0-5) 07/06/18 07:08 Ur Squamous Epith Cells 1 /hpf (0-5) 07/06/18 07:08 Calcium Oxalate Crystal Mod /hpf (<OCC) H 07/06/18 07:08 Blood Type O POSITIVE 07/06/18 06:50 Blood Type Confirm O POSITIVE 07/06/18 08:40 Antibody Screen Negative 07/06/18 06:50 Crossmatch See Detail 07/06/18 06:50 BBK History Checked No verified bt 07/06/18 06:50 - Hospital Course Hospital Course: 62 Y/O female with PMH of Breast Ca diagnosed in 2018 and HTN. Patient has been suffering with progressively worsening painful Osteoarthritis of the right hip for several years. Patient failed conservative management for Right hip OA and decided to have surgical management to the right hip. Patient today is s/p Right NELLY done on 07/06/18. During hospital course patient has remained stable. Today patient if for DC to subacute rehab to continue her PT and recovery after Right hip NELLY. Patient today is afebrile today, hemodinamically stable, she has no complaints except for right hip pain that has been under controlled with pain medication. Patient is for discharge today to a [facility] to continue recovery and PT after right NELLY. Plan: Osteoarthritis of the right hip -S/p Right NELLY post op day 2 - Orthopedic, Dr Reina - Orthopedic management - Pain management, as per ortho - Incentive Spiromter encouraged HTN - Norvasc 5mg daily Hx of Breast Ca -Followed by OP Oncology DVT Prophylaxis with SCD -Lovenox 40 SC QD Discharge Exam - Head Exam Head Exam: ATRAUMATIC, NORMOCEPHALIC - Additional Findings Additional findings: - Constitutional Appears: No Acute Distress - Head Exam Head Exam: ATRAUMATIC, NORMOCEPHALIC - Eye Exam Eye Exam: EOMI - ENT Exam ENT Exam: Mucous Membranes Moist - Respiratory Exam Respiratory Exam: Clear to Ausculation Bilateral - Cardiovascular Exam Cardiovascular Exam: REGULAR RHYTHM, +S1, +S2 - GI/Abdominal Exam GI & Abdominal Exam: Soft - Extremities Exam Extremities Exam: absent: Calf Tenderness Additional comments: Right hip dressing applied clean and intact. Good sensation of b/l LE, capillary refill normal - Neurological Exam Neurological Exam: Alert, Awake - Psychiatric Exam Psychiatric exam: Normal Affect - Skin Skin Exam: Normal Color, Warm Discharge Plan - Follow Up Plan Condition: GOOD Disposition: REHAB FACILITY/REHAB UNIT Patient education suggested?: Yes Instructions: How to Use an Incentive Spirometer, Osteoarthritis (DC), Total Hip Replacement (DC) Additional Instructions: Follow up with your PMD within 2 to 3 days Follow up with your orthopedic surgeon in 1 to 2 weeks You are encouraged to continue using your incentive spirometer, continue taking your medications as prescribed. ED Precautions: Return to the ED if you have chest pain, shortness of breath, palpitations, fever, new onset of severe pain in your calves or any other symptom or concerns presents Referrals: Donell Reina III, MD [Staff Provider] - <Joseline Cleveland - Last Filed: 07/08/18 18:03> Provider - Provider Date of Admission: 07/06/18 12:22 Attending physician: John Scherer MD Consults: 07/06/18 06:52 Orthopedic Consult Routine Comment: Consulting Provider: Donell Reina III Consulting Physician: Donell Reina III Reason for Consult: Osteoarthritis Right hip 07/06/18 12:22 Case Management Referral Routine Comment: Physician Instructions: Reason For Exam: Reason for Referral: Discharge Planning 07/06/18 19:10 Cardiology Consult Routine Comment: Consulting Provider: Leandro Howell Consulting Physician: Leandro Howell Reason for Consult: postop cardiac mgmt Hospital Course - Lab Results Lab Results: Most Recent Lab Values WBC 11.4 K/uL (4.8-10.8) H 07/08/18 05:59 RBC 3.27 Mil/uL (3.80-5.20) L 07/08/18 05:59 Hgb 9.7 g/dL (12.0-16.0) L 07/08/18 05:59 Hct 29.1 % (34.0-47.0) L 07/08/18 05:59 MCV 89.2 fl (81.0-99.0) 07/08/18 05:59 MCH 29.6 pg (27.0-31.0) 07/08/18 05:59 MCHC 33.2 g/dL (33.0-37.0) 07/08/18 05:59 RDW 14.8 % (11.5-14.5) H 07/08/18 05:59 Plt Count 151 K/uL (130-400) 07/08/18 05:59 Sodium 135 mmol/l (132-148) 07/08/18 05:59 Potassium 3.7 MMOL/L (3.6-5.0) 07/08/18 05:59 Chloride 104 mmol/L (98-107) 07/08/18 05:59 Carbon Dioxide 26 mmol/L (22-30) 07/08/18 05:59 Anion Gap 9 (10-20) L 07/08/18 05:59 BUN 14 mg/dl (7-17) 07/08/18 05:59 Creatinine 0.9 mg/dl (0.7-1.2) 07/08/18 05:59 Est GFR ( Amer) > 60 07/08/18 05:59 Est GFR (Non-Af Amer) > 60 07/08/18 05:59 Random Glucose 110 mg/dL (65-105) H 07/08/18 05:59 Calcium 8.6 mg/dL (8.4-10.2) 07/08/18 05:59 Urine Color Yellow (YELLOW) 07/06/18 07:08 Urine Clarity Cloudy (Clear) 07/06/18 07:08 Urine pH 5.0 (5.0-8.0) 07/06/18 07:08 Ur Specific [place] 1.020 (1.003-1.030) 07/06/18 07:08 Urine Protein Negative mg/dL (NEGATIVE) 07/06/18 07:08 Urine Glucose (UA) Neg mg/dL (NEGATIVE) 07/06/18 07:08 Urine Ketones Negative mg/dL (NEGATIVE) 07/06/18 07:08 Urine Blood Negative (NEGATIVE) 07/06/18 07:08 Urine Nitrate Negative (NEGATIVE) 07/06/18 07:08 Urine Bilirubin Negative (NEGATIVE) 07/06/18 07:08 Urine Urobilinogen 0.2-1.0 mg/dL (0.2-1.0) 07/06/18 07:08 Ur Leukocyte Esterase Neg Pratima/uL (Negative) 07/06/18 07:08 Urine RBC (Auto) 2 /hpf (0-3) 07/06/18 07:08 Urine Microscopic WBC 3 /hpf (0-5) 07/06/18 07:08 Ur Squamous Epith Cells 1 /hpf (0-5) 07/06/18 07:08 Calcium Oxalate Crystal Mod /hpf (<OCC) H 07/06/18 07:08 Blood Type O POSITIVE 07/06/18 06:50 Blood Type Confirm O POSITIVE 07/06/18 08:40 Antibody Screen Negative 07/06/18 06:50 Crossmatch See Detail 07/06/18 06:50 BBK History Checked No verified bt 07/06/18 06:50 Attending/Attestation - Attestation I have personally seen and examined this patient.: Yes I have fully participated in the care of the patient.: Yes I have reviewed all pertinent clinical information, including history, physical exam and plan: Yes Notes (Text): Right Hip Primary OA s/p THR - Surgery done by Dr Reina, pt doing well post op - Physical therapy consulted- rec [facility] - Pain mgt, pain well controlled with Percocet -DVT proph- Lovenox - will d/c to [facility] for further PT HTN -restart Norvasc 5 mg daily Mild acute Blood Loss Anemia Post op - Ferrous sulfate BID
--- NOTE | 2018-07-08 11:01 | CP.PCM.PN ---
Subjective - Date & Time of Evaluation Date of Evaluation: 07/08/18 Time of Evaluation: 08:30 - Subjective Subjective: NO COMPLAINTS EXCEPT FOR HIP PAIN Objective - Vital Signs/Intake and Output Vital Signs (last 24 hours): Temp Pulse Resp BP Pulse Ox 98.9 F 100 H 20 110/73 96 07/08/18 09:31 07/08/18 09:31 07/08/18 09:31 07/08/18 09:31 07/08/18 09:31 Intake and Output: 07/08/18 07/08/18 06:59 18:59 Output Total 200 Balance -200 - Medications Medications: Current Medications Acetaminophen (Tylenol 325mg Tab) 650 mg PO Q4 PRN PRN Reason: Fever 101 degrees fahrenheit Last Admin: 07/07/18 21:31 Dose: 650 mg Enoxaparin Sodium (Lovenox) 40 mg SC DAILY [facility]; Protocol Last Admin: 07/08/18 09:41 Dose: 40 mg Ferrous Sulfate (Feosol) 325 mg PO BID [facility] Last Admin: 07/08/18 09:42 Dose: 325 mg Folic Acid (Folic Acid) 1 mg PO DAILY [facility] Last Admin: 07/08/18 09:42 Dose: 1 mg Lactated Ringer's (Lactated Ringer's) 1,000 mls @ 100 mls/hr IV .Q10H [facility] Last Admin: 07/08/18 04:30 Dose: Not Given Lactated Ringer's (Lactated Ringer's) 1,000 mls @ 100 mls/hr IV .Q10H [facility] Last Admin: 07/08/18 04:45 Dose: Not Given Morphine Sulfate (Morphine) 2 mg IVP Q4 PRN PRN Reason: Pain, severe (8-10) Last Admin: 07/07/18 20:09 Dose: 2 mg Ondansetron HCl (Zofran Inj) 4 mg IVP ONCE PRN PRN Reason: Nausea/Vomiting Oxycodone/Acetaminophen (Percocet 5/325 Mg Tab) 2 tab PO Q4 PRN PRN Reason: Pain, moderate (4-7) Stop: 07/09/18 12:23 Last Admin: 07/08/18 07:01 Dose: 2 tab Oxycodone/Acetaminophen (Percocet 5/325 Mg Tab) 1 tab PO Q4 PRN PRN Reason: Pain, Mild (1-3) Stop: 07/09/18 12:23 Senna/Docusate Sodium (Senokot S 50 Mg-8.6 Mg) 2 tab PO HS [facility] Last Admin: 07/07/18 22:29 Dose: Not Given - Labs Labs: 07/08/18 05:59 07/08/18 05:59 - Respiratory Exam Respiratory Exam: Clear to Ausculation Bilateral - Cardiovascular Exam Cardiovascular Exam: REGULAR RHYTHM, +S1, +S2 Assessment and Plan - Assessment and Plan (Free Text) Assessment: S/P RIGHT THR HYPERTENSION BUT BP IS STILL LOW NORMAL Plan: WILL RESUME AMLODIPINE ONCE BP STARTS TO INCREASE FOR DISCHARGE TO PHYSICAL THERAPY
[2018-07-08 14:35] VITALS: BP 126/76; O2SAT 94
== END 2018-07-08 15:36 | DRG 470 ==
LOC: H.OPSURG 05:57 → H.MEDSURG1 12:22 → H.OPSURG 16:08
PROVIDERS: ADMIT Hospitalist; ATTEND Hospitalist
PROC: 0QB60ZZ Excision of Right Upper Femur, Open Approach (ICD-10-PCS; 2018-07-06)
PROC: 0SB90ZZ Excision of Right Hip Joint, Open Approach (ICD-10-PCS; 2018-07-06)
PROC: 0SN90ZZ Release Right Hip Joint, Open Approach (ICD-10-PCS; 2018-07-06)
PROC: 0SR90JZ Replacement of Right Hip Joint with Synthetic Substitute, Open Approach (ICD-10-PCS; principal; 2018-07-06 07:45)
DX: M16.11 Unilateral primary osteoarthritis, right hip (principal); D62 Acute posthemorrhagic anemia; M24.551 Contracture, right hip; R33.9 Retention of urine, unspecified; I10 Essential (primary) hypertension; M65.9 Synovitis and tenosynovitis, unspecified; M21.751 Unequal limb length (acquired), right femur; Z87.891 Personal history of nicotine dependence; Z85.3 Personal history of malignant neoplasm of breast